=== PATIENT | male | born 1985 | race Caucasian/White ===

== ENCOUNTER 2018-05-29 15:46 | Outpatient (CLI) | payer OTHER ==
--- NOTE | 2018-05-29 18:12 | RAD ---
THREE VIEWS RIGHT HAND 05/29/18 HISTORY: Injury to right hand after 50 lb weight fell on patient's hand. FINDINGS: No acute fracture or dislocation is seen. There are several punctate radiopaque densities overlying t he volar and medial subcutaneous soft tissues of the thumb at the level of the interphalangeal joint which is suggestive of radiopaque foreign bodies. No other findings. IMPRESSION: 1. No acute osseous abnormality. 2. Several punctate radiopaque foreign bodies within the subcutaneous soft tissues of the right thumb. POS: [facility]
== END 2018-05-29 15:47 | disposition home or self-care (01) ==
LOC: MADRAD 15:46
DX: S69.91XA Unspecified injury of right wrist, hand and finger(s), initial encounter (principal); M79.5 Residual foreign body in soft tissue

== ENCOUNTER 2019-10-16 18:58 | Emergency (ER) | payer SELFPAY ==
[2019-10-16] MEDS ORDERED: Clindamycin 150 MG CAP ONE (19:46)
== END 2019-10-16 19:54 | disposition home or self-care (01) ==
LOC: MADERS 18:58
DX: K04.7 Periapical abscess without sinus (principal); K03.81 Cracked tooth; Z87.891 Personal history of nicotine dependence
CPT/HCPCS: 99282